=== PATIENT | male | born 1995 | race Caucasian/White ===

== ENCOUNTER → 2018-08-02 | Outpatient (CLI) | payer BC | LOC: RADXRMAIN 17:53 | PROVIDERS: ATTEND Family Medicine | DX: Z53.9 Procedure and treatment not carried out, unspecified reason (principal) ==

== ENCOUNTER → 2018-08-10 | Outpatient (CLI) | payer BC ==
--- NOTE | 2018-08-10 16:07 | XR ---
EXAMINATION TYPE: XR lumbosacral spine min 4V DATE OF EXAM: 08/10/2018 COMPARISON: NONE HISTORY: 23-year-old male chronic back pain, dorsalgia. TECHNIQUE: 5 views FINDINGS: 5 lumbar type vertebral bodies. No pars interarticularis defect. Vertebral body heights are preserved . There is minimal anterior wedging at T11 which is age-indeterminate. Very mild scattered endplate s pondylosis. Mild facet arthropathy lower lumbar spine. Alignment is maintained. IMPRESSION: 1. Mild anterior wedging of T11 is age indeterminate. Correlate for any pain at this level. 2. Scattered mild endplate spondylosis. Additional mild facet arthropathy lower lumbar spine.
== END | disposition home or self-care (01) ==
LOC: RADXRMAIN 12:43
PROVIDERS: ATTEND Family Medicine
DX: M47.816 Spondylosis without myelopathy or radiculopathy, lumbar region (principal); M46.96 Unspecified inflammatory spondylopathy, lumbar region
CPT/HCPCS: 72110

== ENCOUNTER → 2018-10-02 | Outpatient (CLI) | payer BC ==
--- NOTE | 2018-10-02 09:33 | MR ---
EXAMINATION TYPE: MR lumbar spine wo con DATE OF EXAM: 10/02/2018 COMPARISON: 08/03/2018 HISTORY: Radiculopathy, lumbar region TECHNIQUE: Multiplanar, multisequence images of the lumbar spine were acquired. FINDINGS: Lumbar spine vertebral bodies maintain normal vertebral body heights and alignment. The pre viously seen minimal anterior wedging at T11 is not appreciated on this lumbar spine MRI. Thoracic sp ine MR could assess this finding. Conus medullaris is unremarkable terminating at T12-L1. No signific ant disc desiccation is seen. L1-L2: Normal disc appearance without desiccation. No herniation, protrusion or disc bulging. No ca nal stenosis is present. Foramina are patent bilaterally. L2-L3: Normal disc appearance without desiccation. No herniation, protrusion or disc bulging. No ca nal stenosis is present. Foramina are patent bilaterally. L3-L4: There is a small broad-based disc bulge and mild facet arthropathy without spinal canal stenos is nor neural foraminal narrowing. L4-L5: [There is a very small central disc herniation/protrusion superimposed upon a broad-based disc bulge with facet arthropathy present resulting in very minimal neural foraminal narrowing. No spinal canal stenosis. Mild facet arthropathy is seen at this level. L5-S1: There is a broad-based disc bulge without spinal canal stenosis nor neural foraminal narrowing . Mild facet arthropathy is present. IMPRESSION: 1. Very small disc central herniation at L4-L5 without spinal canal stenosis. Minimal bilateral neura l foraminal narrowing is seen at this level. 2. Broad-based disc bulges at L3-L4 and L5-S1 without spinal canal stenosis nor neural foraminal narr owing. 3. Mild facet arthropathy from L3 through S1. 4. Vertebral body height loss at T11 appreciated on the prior radiograph dated 08/10/2018 is not seen given the [id number] on this lumbar spine exam. If there is point tenderness thoracic spine MR co uld be performed.
== END | disposition home or self-care (01) ==
LOC: RADMRIMAIN 08:04
PROVIDERS: ATTEND Family Medicine
DX: M99.73 Connective tissue and disc stenosis of intervertebral foramina of lumbar region (principal); M51.17 Intervertebral disc disorders with radiculopathy, lumbosacral region; M46.97 Unspecified inflammatory spondylopathy, lumbosacral region
CPT/HCPCS: 72148

== ENCOUNTER 2019-04-23 22:39 | Emergency (ER) | payer BC ==
[2019-04-23] MEDS ORDERED: SODIUM CHLORIDE 0.9% 1,000 ML IV STA (22:43)
[2019-04-23] MEDS ORDERED: LORazepam 2 MG/ML INJ IV STA (22:44)
--- NOTE | 2019-04-23 22:44 | ED ---
General Adult HPI - General Stated complaint: OD - History of Present Illness Initial comments: Srikanth is a 23-year-old woman presents the emergency department today for evaluation of intoxication after smoking meth. Patient reports that approximately 3 hours prior to arrival he smoked some meth, he did begin to feel very hot and sweaty his parents noted that he was sweating and very erratic at which time they decided to call 911 and have him transferred to the ER. Patient reports that he used to be prescribed Adderall to help him focused, he was taken off this number of months ago but reports intermittently he has smoked meth which she thought would help him focused to be less stressed. Upon my evaluation the patient reports he's feeling fine. He doesn't want to be poked with any needles. He doesn't want any evaluation. He denies any chest pain palpitations shortness of breath. - Related Data Home Medications Medication Instructions Recorded Confirmed Buprenorphine HCl/Naloxone HCl 1 film PO BID 04/23/19 04/23/19 [Suboxone 4 mg-1 mg Sl Film] Gabapentin 600 mg PO TID 04/23/19 04/23/19 Allergies Allergy/AdvReac Type Severity Reaction Status Date / Time No Known Allergies Allergy Verified 05/09/14 14:03 Review of Systems ROS Statement: Those systems with pertinent positive or pertinent negative responses have been documented in the HPI. ROS Other: All systems not noted in ROS Statement are negative. Past Medical History Past Medical History: No Reported History History of Any Multi-Drug Resistant Organisms: None Reported Past Surgical History: No Surgical Hx Reported Past Anesthesia/Blood Transfusion Reactions: No Reported Reaction Additional Past Anesthesia/Blood Transfusion Reaction / Comment(s): never had anesthesia Past Psychological History: ADD/ADHD Smoking Status: Current every day smoker Past Alcohol Use History: None Reported Past Drug Use History: Marijuana General Exam - General Exam Comments Initial Comments: Physical Exam GENERAL: Patient is well-developed and well-nourished. HENT: Normocephalic, Atraumatic. EYES: Pupils are dilated 5 mm reactive to light PULMONARY: Unlabored respirations. No audible rales rhonchi or wheezing was noted. CARDIOVASCULAR: Tachycardic, regular ABDOMEN: Soft and nontender with normal bowel sounds. SKIN: Skin was initially diaphoretic however during the ER stay patient skin normalized she is no longer diaphoretic : Deferred NEUROLOGIC: Patient is alert and oriented x3. Moving all extremities spontaneously MUSCULOSKELETAL: Normal extremities with adequate strength and full range of motion. PSYCHIATRIC: Agitated Course Vital Signs 04/23/19 04/24/19 22:43 01:20 Temperature 96.9 F L 98.1 F Pulse Rate 100 100 Respiratory 18 19 Rate Blood Pressure 151/99 145/95 O2 Sat by Pulse 100 99 Oximetry EKG Findings - EKG Comments: EKG Findings:: EKG was ordered due to tachycardia upon arrival, EKG was obtained at 12:52 AM, rate is 83 rhythm is sinus there is normal axis, there is normal intervals, there are no acute ST elevations or depressions and no evidence of acute ischemia or infarction. There is significant artifact on EKG secondary to the patient refusal to shave his chest or EKG leads. Medical Decision Making - Medical Decision Making Patient was seen and evaluated upon arrival. Despite being under the influence of amphetamines and somewhat agitated the patient was awake alert oriented to person place location, patient did admit to the medication that he used he knew the affected head on him. He recognized that he is being somewhat paranoid. Patient was very agitated by hearing babies crying in the emergency department. The patient declined initial workup however his father was concerned about his health and did want him to stay in the emergency department for evaluation The patient rested for couple of hours in the emergency department. He then became less agitated no longer appeared to be under the influence, he apologized for his erratic behavior. He apologized to staff as well as to his father. He admitted that it was unwise of him to use amphetamines. He again denied any complaints and would like to be discharged home at this time. Patient is currently in outpatient substance abuse counseling does not need any further community resources to be provided him. All questions pertaining care were answered the best my ability return parameters were discussed the patient was discharged home, his father will provide him with a ride home. Disposition Clinical Impression: Methamphetamine abuse Disposition: HOME SELF-CARE Condition: Stable Instructions (If sedation given, give patient instructions): Methamphetamine Abuse (ED) Is patient prescribed a controlled substance at d/c from ED?: No Referrals: Sidney Lindsey Jr, DO [Primary Care Provider] - 1-2 days
[2019-04-23 23:02] VITALS: PULSE 100
[2019-04-24 01:21] VITALS: BP 145/95; RESP 19; TEMP 98.1
== END 2019-04-24 01:06 | disposition home or self-care (01) ==
LOC: EC 22:39
DX: F15.10 Other stimulant abuse, uncomplicated (principal); F17.200 Nicotine dependence, unspecified, uncomplicated; Z79.899 Other long term (current) drug therapy
CPT/HCPCS: 93005; 99284

== ENCOUNTER 2019-06-08 15:59 | Emergency (ER) | payer BC, OTHER ==
--- NOTE | 2019-06-08 16:14 | ED ---
Psych HPI - General Stated Complaint: Mental Health/Petition - History of Present Illness Initial Comments: 23-year-old male petitioned by parents for psychosis. Patient admits to drug use. He states that he has gone to a [facility]. Family petitioned patient as he is delusional they state he is saying he is various powerful people. He has states that they are billionaries and made other delusional claims over the course of the past week. Patient has history of opiod abuse however they are concerned of meth use. Patient admited to multi substance abuse. Upon history patient has rabid speech, flight of ideas. Patient does not appears altered, nor aggitated. He states he has no complaints. Patient does appear acutely psychotic. - Related Data Home Medications Medication Instructions Recorded Confirmed No Known Home Medications 06/08/19 06/08/19 Allergies Allergy/AdvReac Type Severity Reaction Status Date / Time No Known Allergies Allergy Verified 06/08/19 16:27 Review of Systems ROS Statement: Those systems with pertinent positive or pertinent negative responses have been documented in the HPI. ROS Other: All systems not noted in ROS Statement are negative. Past Medical History Past Medical History: No Reported History History of Any Multi-Drug Resistant Organisms: None Reported Past Surgical History: No Surgical Hx Reported Past Anesthesia/Blood Transfusion Reactions: No Reported Reaction Additional Past Anesthesia/Blood Transfusion Reaction / Comment(s): never had an esthesia Past Psychological History: ADD/ADHD Smoking Status: Current every day smoker Past Alcohol Use History: None Reported Past Drug Use History: Marijuana General Exam - General Exam Comments Initial Comments: General: The patient is awake and alert, in no distress, and does not appear acutely ill. Eye: +2 mm pupils are equal, round and reactive to light, extra-ocular movements are intact. No nystagmus. There is normal conjunctiva bilaterally. No signs of icterus. Ears, nose, mouth and throat: There are moist mucous membranes and no oral lesions. Neck: The neck is supple, there is no tenderness or JVD. Cardiovascular: There is a regular rate and rhythm. No murmur, rub or gallop is appreciated. Respiratory: Lungs are clear to auscultation, respirations are non-labored, breath sounds are equal. No wheezes, stridor, rales, or rhonchi. Gastrointestinal: Soft, non-distended, non-tender abdomen without masses or organomegaly noted. There is no rebound or guarding present. Musculoskeletal: Normal ROM, no tenderness. Strength 5/5. Sensation intact. Pulses equal bilaterally 2+. Neurological: A&O x 3. CN II-XII intact, There are no obvious motor or sensory deficits. Coordination appears grossly intact. Speech is normal. Skin: Skin is warm and dry and no rashes or lesions are noted. Psychiatric: Cooperative, rapid speech, flight of ideas Course Vital Signs 06/08/19 16:10 Temperature 98.1 F Pulse Rate 98 Respiratory 18 Rate Blood Pressure 131/83 O2 Sat by Pulse 98 Oximetry Medical Decision Making - Medical Decision Making 23-year-old male petitioned for psych evaluation by parents. Upon initial history taking patient does appear acutely psychotic. Admits to methamphetamine abuse. Positive and urinalysis as well as opioids marijuana and amphetamines. Patient has rapid pressured speech as well as flight of ideas. Family states he has had delusional ideations such as saying he is a powerful person/billionaire. At this time I feel patient should be transferred for further psychiatric evaluation. Laboratory studies unremarkable, physical examination unremarkable. - Lab Data Result diagrams: 06/08/19 16:20 06/08/19 16:20 Lab Results 06/08/19 06/08/19 06/08/19 Range/Units 16:20 16:20 16:20 WBC 8.0 (3.8-10.6) k/uL RBC 4.85 (4.30-5.90) m/uL Hgb 14.2 (13.0-17.5) gm/dL Hct 42.4 (39.0-53.0) % MCV 87.5 (80.0-100.0) fL MCH 29.3 (25.0-35.0) pg MCHC 33.5 (31.0-37.0) g/dL RDW 13.1 (11.5-15.5) % Plt Count 353 (150-450) k/uL Sodium 141 (137-145) mmol/L Potassium 4.0 (3.5-5.1) mmol/L Chloride 104 (98-107) mmol/L Carbon Dioxide 26 (22-30) mmol/L Anion Gap 11 mmol/L BUN 10 (9-20) mg/dL Creatinine 0.72 (0.66-1.25) mg/dL Est GFR (CKD-EPI)AfAm >90 (>60 ml/min/1.73 sqM) Est GFR (CKD-EPI)NonAf >90 (>60 ml/min/1.73 sqM) Glucose 102 H (74-99) mg/dL Calcium 9.9 (8.4-10.2) mg/dL Total Bilirubin 0.6 (0.2-1.3) mg/dL AST 17 (17-59) U/L ALT 15 L (21-72) U/L Alkaline Phosphatase 66 (38-126) U/L Total Protein 7.7 (6.3-8.2) g/dL Albumin 4.6 (3.5-5.0) g/dL Urine Color Yellow Urine Appearance Clear (Clear) Urine pH 6.5 (5.0-8.0) Ur Specific [place] 1.019 (1.001-1.035) Urine Protein 1+ H (Negative) Urine Glucose (UA) Negative (Negative) Urine Ketones Negative (Negative) Urine Blood Negative (Negative) Urine Nitrite Negative (Negative) Urine Bilirubin Negative (Negative) Urine Urobilinogen <2.0 (<2.0) mg/dL Ur Leukocyte Esterase Negative (Negative) Urine RBC 1 (0-5) /hpf Urine WBC 2 (0-5) /hpf Hyaline Casts 14 H (0-2) /lpf Urine Mucus Occasional H (None) /hpf Urine Opiates Screen Detected H (NotDetected) Ur Oxycodone Screen Not Detected (NotDetected) Urine Methadone Screen Not Detected (NotDetected) Ur Propoxyphene Screen Not Detected (NotDetected) Ur Barbiturates Screen Not Detected (NotDetected) U Tricyclic Antidepress Not Detected (NotDetected) Ur Phencyclidine Scrn Not Detected (NotDetected) Ur Amphetamines Screen Detected H (NotDetected) U Methamphetamines Scrn Detected H (NotDetected) U Benzodiazepines Scrn Not Detected (NotDetected) Urine Cocaine Screen Not Detected (NotDetected) U Marijuana (THC) Screen Detected H (NotDetected) Disposition 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 Specs Out of Hospital Transfer - Requested Specifics: Psychiatric Non-ICU
[2019-06-08 16:30] VITALS: RESP 18
[2019-06-08 16:51] LABS: HCT 42.4 % (39.0-53.0); HGB 14.2 gm/dL (13.0-17.5); MCH 29.3 pg (25.0-35.0); MCHC 33.5 g/dL (31.0-37.0); MCV 87.5 fL (80.0-100.0); Mean Platelet Volume 6.6; Platelet Count 353 k/uL (150-450); RBC 4.85 m/uL (4.30-5.90); RDW 13.1 % (11.5-15.5)
[2019-06-08 16:53] LABS: Appearance,Urine Clear (Clear); Bilirubin,Urine Negative (Negative); Blood,Urine Negative (Negative); Color,Urine Yellow; Glucose,Urine (UA) Negative (Negative); Hyaline Casts,Urine 14 /lpf (0-2); Ketones,Urine Negative (Negative); Leukocyte Esterase,Urine Negative (Negative); Mucus,Urine Occasional /hpf; Nitrite,Urine Negative (Negative); PH, Urine 6.5 (5.0-8.0); Protein,Urine 1+ (Negative); RBC,Urine 1 /hpf (0-5); Specific Gravity,Urine 1.019 (1.001-1.035); Urobilinogen,Urine <2.0 mg/dL (<2.0); WBC,Urine 2 /hpf (0-5)
[2019-06-08 16:59] LABS: ALT 15 U/L (21-72); AST 17 U/L (17-59); African American GFR (CKD) >90 (>60 ml/min/1.73 sqM); Albumin 4.6 g/dL (3.5-5.0); Alkaline Phosphatase 66 U/L (38-126); Anion Gap 11 mmol/L; Blood Urea Nitrogen 10 mg/dL (9-20); Calcium 9.9 mg/dL (8.4-10.2); Carbon Dioxide 26 mmol/L (22-30); Chloride 104 mmol/L (98-107); Glucose 102 mg/dL (74-99); Sodium 141 mmol/L (137-145); Total Bilirubin 0.6 mg/dL (0.2-1.3); Total Protein 7.7 g/dL (6.3-8.2)
[2019-06-08 17:00] LABS: Amphetamine Screen,Urine Detected (NotDetected); Barbiturate Screen,Urine Not Detected (NotDetected); Benzodiazepines Screen,Urine Not Detected (NotDetected); Cocaine Screen,Urine Not Detected (NotDetected); Methadone Screen, Urine Not Detected (NotDetected); Opiate Screen,Urine Detected (NotDetected); Oxycodone Screen, Urine Not Detected (NotDetected); Phencyclidine Screen,Urine Not Detected (NotDetected); Tricyclic Antidepressant,Urine Not Detected (NotDetected); Urn Cannabinoid Scrn Detected (NotDetected)
[2019-06-08] MEDS ORDERED: LORazepam 1 MG TAB PO STA (20:39)
[2019-06-08 20:56] VITALS: BP 150/78; PULSE 89; TEMP 98.3
== END 2019-06-08 21:30 ==
LOC: EC 15:59
DX: F15.150 Other stimulant abuse with stimulant-induced psychotic disorder with delusions (principal); F17.200 Nicotine dependence, unspecified, uncomplicated
CPT/HCPCS: 36415; 80053; 80306; 81001; 85027; 99285

== ENCOUNTER 2020-11-01 19:39 | Emergency (ER) | payer OTHER ==
[2020-11-01 19:50] VITALS: BP 124/67; PULSE 110; RESP 19; TEMP 98
[2020-11-01] MEDS ORDERED: FLUORESCEIN STRIPS 1 MG STRIP LEFT EYE ONE (19:56)
[2020-11-01] MEDS ORDERED: PROPARACAINE 0.5% OPHTH DROPS 15 ML BTL RIGHT EYE STA (19:56)
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
== END 2020-11-01 20:19 | disposition home or self-care (01) ==
LOC: EC 19:39
DX: Z02.89 Encounter for other administrative examinations (principal); H57.89 Other specified disorders of eye and adnexa; F17.200 Nicotine dependence, unspecified, uncomplicated
CPT/HCPCS: 99281

== ENCOUNTER 2022-07-26 08:47 | Emergency (ER) | payer OTHER ==
[2022-07-26 08:58] VITALS: RESP 18; TEMP 97.8
[2022-07-26] MEDS ORDERED: LIDOCAINE 1% INJ 10MG/ML (20 ML MDV) SQ ONE (09:05)
--- NOTE | 2022-07-26 09:08 | ED ---
General Adult HPI - General Chief complaint: Wound/Laceration Stated complaint: [facility]-finger lac Time Seen by Provider: 07/26/22 08:53 Source: patient, RN notes reviewed, old records reviewed Mode of arrival: ambulatory Limitations: no limitations - History of Present Illness Initial comments: 27-year-old male with cinnamon grinder injury to the left index finger. This occurred just prior to arrival. No other injury reported. Patient states his tetanus is up-to-date. Bleeding controlled prior to arrival - Related Data Previous Rx's Medication Instructions Recorded Cephalexin [Keflex] 500 mg PO QID 5 Days #20 cap 07/26/22 Allergies Allergy/AdvReac Type Severity Reaction Status Date / Time No Known Allergies Allergy Verified 07/26/22 08:58 Review of Systems ROS Statement: Those systems with pertinent positive or pertinent negative responses have been documented in the HPI. ROS Other: All systems not noted in ROS Statement are negative. Past Medical History Past Medical History: No Reported History History of Any Multi-Drug Resistant Organisms: None Reported Past Surgical History: Tonsillectomy Past Anesthesia/Blood Transfusion Reactions: No Reported Reaction Additional Past Anesthesia/Blood Transfusion Reaction / Comment(s): never had anesthesia Past Psychological History: ADD/ADHD Smoking Status: Current every day smoker Past Alcohol Use History: None Reported General Exam Limitations: no limitations General appearance: alert, in no apparent distress Head exam: Present: atraumatic, normocephalic Eye exam: Present: normal appearance, PERRL ENT exam: Present: normal exam Neck exam: Present: normal inspection. Absent: tenderness Respiratory exam: Present: normal lung sounds bilaterally. Absent: respiratory distress, wheezes Cardiovascular Exam: Present: regular rate, normal rhythm GI/Abdominal exam: Present: soft. Absent: distended, tenderness, guarding Extremities exam: Present: other (1 cm laceration distal tip of the left second digit) Course Vital Signs 07/26/22 08:54 Temperature 97.8 F Pulse Rate 78 Respiratory 18 Rate Blood Pressure 174/85 O2 Sat by Pulse 98 Oximetry Procedures - Laceration Laceration #1 Consent Obtained: verbal consent Indication: laceration Site: hand Description: linear Depth: simple, single layer Anesthetic Used: lidocaine 1% Anesthesia Technique: local infiltration Amount (mls): 3 Pre-repair: wound explored, irrigated extensively, deep structures intact Type of Sutures: nylon Size of Sutures: 5-0 Number of Sutures: 3 Technique: simple, interrupted Patient Tolerated Procedure: well Medical Decision Making - Medical Decision Making 27-year-old male with fingertip laceration. Repaired with nylon suture. Given the injury and to follow did initiate prophylactic antibiotics. Disposition Clinical Impression: Laceration Disposition: HOME SELF-CARE Condition: Good Instructions (If sedation given, give patient instructions): Laceration (ED), Care For Your Stitches (DC) Additional Instructions: Please return for suture removal in 10 days. Prescriptions: Cephalexin [Keflex] 500 mg PO QID 5 Days #20 cap Is patient prescribed a controlled substance at d/c from ED?: No Referrals: None,Stated [Primary Care Provider] - 1-2 days Time of Disposition: 09:35
[2022-07-26 09:59] VITALS: BP 148/79; PULSE 72
== END 2022-07-26 09:59 | disposition home or self-care (01) ==
LOC: EC 08:47
DX: S61.211A Laceration without foreign body of left index finger without damage to nail, initial encounter (principal); F17.200 Nicotine dependence, unspecified, uncomplicated; X58.XXXA Exposure to other specified factors, initial encounter
CPT/HCPCS: 12001; 99282; J2001; 12002

== ENCOUNTER → 2023-11-28 | Outpatient (CLI) | payer OTHER ==
--- NOTE | 2023-11-28 09:10 | XR ---
EXAMINATION TYPE: XR thoracic spine 2V, XR cervical spine comp, XR lumbosacral spine min 4V DATE OF EXAM: 11/28/2023 8:37 AM CLINICAL INDICATION:Male, 28 years old with history of M54.2 G89.29 M54.51 Cervicalgia pain sciatica; [facility] COMPARISON: 10/02/2018. TECHNIQUE: XR thoracic spine 2V, XR cervical spine comp, XR lumbosacral spine min 4V views of the spi ne in Frontal and lateral projections of the thoracic spine. Frontal lateral and bilateral obliques o f the lumbar and cervical spine. Additional odontoid view of the cervical spine. FINDINGS: No evidence of acute fracture. Mild wedging of the vertebrae in the lower thoracic upper lumbar spine .. There is normal alignment of the thoracic vertebral bodies. Scattered osteophyte formation along t he anterior and lateral aspects of the vertebral bodies. Neural foramen are patent given limitations of this exam. Spinal canal appears patent. IMPRESSION: 1. No acute osseous pathology. 2. Moderate disc degeneration changes worse at the thoracolumbar junction for patient's age.
== END | disposition home or self-care (01) ==
LOC: RADXRMAIN 08:04
PROVIDERS: ATTEND Family Medicine
DX: M51.34 Other intervertebral disc degeneration, thoracic region (principal); M54.2 Cervicalgia; G89.29 Other chronic pain
CPT/HCPCS: 72050; 72070; 72110